=== PATIENT | female | born 1975 | race Caucasian/White ===

== ENCOUNTER → 2020-01-12 09:01 | Outpatient (BNVA) | payer OTHER, SELFPAY | PROVIDERS: Family Provider Internal Medicine; PCP Internal Medicine; Visit Provider Internal Medicine | DX: D56.9 Thalassemia, unspecified (principal); E06.3 Autoimmune thyroiditis; E04.1 Nontoxic single thyroid nodule; E03.8 Other specified hypothyroidism; E55.9 Vitamin D deficiency, unspecified; Z90.49 Acquired absence of other specified parts of digestive tract; Z90.711 Acquired absence of uterus with remaining cervical stump; Z90.89 Acquired absence of other organs | CPT/HCPCS: 99203 ==

== ENCOUNTER 2020-01-12 10:36 | Outpatient (CLI) | payer OTHER, SELFPAY ==
[2020-01-12 11:53] LABS: Free T4 Free Thyroxine 0.51 ng/dL (0.82-1.77); Thyroid Stimulating Hormone 9.35 uIU/mL (0.27-4.20)
[2020-01-12 12:33] LABS: 25 Hydroxy Vitamin D 23 ng/mL (30-100)
[2020-01-13 09:02] LABS: T3 Total 65 ng/dL (76-181)
== END 2020-01-12 10:37 | disposition home or self-care (01) ==
LOC: LAB 10:39
PROVIDERS: PCP Internal Medicine; Visit Provider Internal Medicine
DX: D56.9 Thalassemia, unspecified (principal); E03.8 Other specified hypothyroidism; E06.3 Autoimmune thyroiditis; Z90.49 Acquired absence of other specified parts of digestive tract; Z90.711 Acquired absence of uterus with remaining cervical stump; Z90.89 Acquired absence of other organs
CPT/HCPCS: 82306; 84439; 84443; 84480

== ENCOUNTER 2020-03-12 14:00 | Outpatient (CLI) | payer OTHER, SELFPAY ==
--- NOTE | 2020-03-12 14:08 | US_ITS ---
WS: [id number] ULTRASOUND THYROID TECHNIQUE: Ultrasound of the thyroid. CLINICAL INFORMATION: hx of thyroid nodules COMPARISON: None. FINDINGS: Thyroid: Enlarged heterogeneous thyroid bilaterally. Diffuse heterogeneous thyroid echotexture appear s improved since 2018. Thyroid vascularity appears normal. New hypoechoic right thyroid nodule measur ing 8.9 x 7.0 x 10 mm. No left-sided nodules. Right thyroid lobe: 4.9 cm x 1.7 cm x 2.6 cm Left thyroid lobe: 5.3 cm x 1.8 cm x 1.6 cm. Isthmus: 0.6 mm. Cervical lymphadenopathy: None. US/US thyroid [id number] IMPRESSION: 1. Enlarged thyroid with diffuse heterogeneous background echotexture appears improved since 2018. This can be seen with chronic thyroiditis. Vascularity amadou ears normal. 2. Hypoechoic well-circumscribed thyroid nodule measuring 8.9 x 7.0 x 10 mm. R ecommend 12 month follow-up. 3. No left-sided nodules.
[2020-03-12 15:34] LABS: Free T4 Free Thyroxine 0.71 ng/dL (0.82-1.77); Thyroid Stimulating Hormone 3.71 uIU/mL (0.27-4.20)
[2020-03-13 11:32] LABS: T3 Total 147 ng/dL (76-181)
[2020-03-15 12:27] LABS: Tissue Transglutaminase IgA Ab <1 U/mL; Tissue transglutaminase Ab.IgG 2 U/mL
[2020-03-17 01:48] LABS: Immunoglobulin A 119 mg/dL (47-310)
[2020-03-17 16:43] LABS: Gliadin Ab.IgA 4 U (<20); Gliadin Ab.IgG 2 U (<20)
== END 2020-03-12 14:01 | disposition home or self-care (01) ==
PROVIDERS: PCP Internal Medicine; Visit Provider Internal Medicine
DX: Z87.898 Personal history of other specified conditions (principal); E03.8 Other specified hypothyroidism; E06.3 Autoimmune thyroiditis; K90.9 Intestinal malabsorption, unspecified; E04.1 Nontoxic single thyroid nodule
CPT/HCPCS: 76536; 82784; 83516; 84439; 84443; 84480

== ENCOUNTER → 2020-03-18 14:20 | Outpatient (BNVA) | payer OTHER, SELFPAY | PROVIDERS: PCP Internal Medicine; Visit Provider Internal Medicine | DX: E03.9 Hypothyroidism, unspecified (principal); E04.1 Nontoxic single thyroid nodule; E06.3 Autoimmune thyroiditis; R53.83 Other fatigue | CPT/HCPCS: 99214 ==

== ENCOUNTER 2020-09-23 13:29 | Outpatient (CLI) | payer OTHER, SELFPAY ==
--- NOTE | 2020-09-23 13:35 | MM_ITS ---
WS: [id number] BILATERAL DIGITAL SCREENING MAMMOGRAPHY WITH CAD CLINICAL INFORMATION: SCREENING HISTORY: Screening mammogram. No current complaints. COMPARISON: None. TECHNIQUE: Bilateral CC and MLO views. FINDINGS: Prior breast reduction The breasts are composed of heterogeneous fibroglandular density tissue, which can limit the detectio n of small underlying mass lesions. No suspicious mass, asymmetry, calcifications, or architectural d istortion. No evidence of malignancy. MM/[place] [id number] IMPRESSION: BI-RADS: 1-Negative FOLLOW UP: 1 Year Follow-up Recommend return to annual screening mammography.
== END 2020-09-23 13:30 | disposition home or self-care (01) ==
LOC: RADSHAW 13:33
PROVIDERS: PCP Internal Medicine; Visit Provider Internal Medicine
DX: Z12.31 Encounter for screening mammogram for malignant neoplasm of breast (principal)
CPT/HCPCS: 77067

== ENCOUNTER 2021-03-11 13:34 | Outpatient (CLI) | payer OTHER, SELFPAY ==
[2021-03-11 15:04] LABS: Cortisol Random 8.37 ug/dL (2.47-19.5); Free T4 Free Thyroxine 0.56 ng/dL (0.82-1.77); Thyroid Stimulating Hormone 13.42 uIU/mL (0.27-4.20)
[2021-03-12 07:53] LABS: T3 Total 95 ng/dL (76-181)
[2021-03-13 16:32] LABS: Immunoglobulin A 136 mg/dL (47-310)
== END 2021-03-11 13:35 | disposition home or self-care (01) ==
LOC: LAB 13:40
PROVIDERS: PCP Internal Medicine; Visit Provider Internal Medicine
DX: E03.8 Other specified hypothyroidism (principal); E06.3 Autoimmune thyroiditis
CPT/HCPCS: 36415; 82533; 82784; 83516; 84439; 84443; 84480

== ENCOUNTER → 2021-03-17 10:47 | Outpatient (BNVA) | payer OTHER, SELFPAY | PROVIDERS: PCP Internal Medicine; Visit Provider Internal Medicine | DX: E04.1 Nontoxic single thyroid nodule (principal); E03.8 Other specified hypothyroidism; E06.3 Autoimmune thyroiditis; R14.0 Abdominal distension (gaseous) | CPT/HCPCS: 99214 ==

== ENCOUNTER 2021-09-02 20:00 | Outpatient (CLI) | payer OTHER, SELFPAY | END 2021-09-02 20:01 | disposition home or self-care (01) | LOC: SLEEP 09-03 08:54 | PROVIDERS: PCP Internal Medicine; Visit Provider Specialist | DX: G47.33 Obstructive sleep apnea (adult) (pediatric) (principal) | CPT/HCPCS: 95810 ==

== ENCOUNTER 2021-09-03 15:53 | Outpatient (CLI) | payer OTHER, SELFPAY ==
[2021-09-03 16:59] LABS: Basophils # 0.1 10^3/uL (0.0-0.1); Basophils % 0.6 %; Eosinophils # 0.3 10^3/uL (0.0-0.8); Eosinophils % 2.3 %; Hematocrit 36.7 % (37.0-47.0); Hemoglobin 11.6 g/dL (11.5-15.3); Lymphocytes # 4.1 10^3/uL (0.8-4.8); Lymphocytes % 37.8 %; Mean Corpuscular HGB Conc 31.6 g/dL (30.0-36.0); Mean Corpuscular Hemoglobin 23.6 pg (28.0-34.0); Mean Corpuscular Volume 74.7 fl (81-99); Mean Platelet Volume 12.7 fL (7.4-10.4); Monocytes # 0.7 10^3/uL (0.2-0.9); Monocytes % 6.6 %; Neutrophils # 5.65 10^3/uL (1.8-7.7); Neutrophils % 52.2 %; Nucleated Red Blood Cells % 0 %; Platelet Count 212 10^3/cmm (130-400); Red Blood Count 4.91 10^6/uL (4.1-5.3); Red Cell Distribution Width 14.5 % (12.1-15.1); White Blood Count 10.8 10^3/uL (4.0-10.0)
[2021-09-03 17:16] LABS: Iron 99 ug/dL (37-145); Percent Saturation 33.7 % (20-50); Total Iron Binding Capacity 293 mcg/dl; Unsaturated Iron Binding 194 ug/dL (112-347)
[2021-09-03 17:20] LABS: Slide Review Slide Review Perform
[2021-09-03 17:25] LABS: Thyroid Stimulating Hormone 48.04 uIU/mL (0.27-4.20)
[2021-09-05 08:27] LABS: T3 Total 77 ng/dL (76-181)
== END 2021-09-03 15:54 | disposition home or self-care (01) ==
LOC: LAB 15:56
PROVIDERS: Internal Medicine; PCP Internal Medicine; Visit Provider Internal Medicine
DX: E03.8 Other specified hypothyroidism (principal); E04.1 Nontoxic single thyroid nodule; E06.3 Autoimmune thyroiditis; D56.9 Thalassemia, unspecified
CPT/HCPCS: 36415; 83540; 83550; 84439; 84443; 84480; 85025

== ENCOUNTER 2023-07-19 11:06 | Outpatient (CLI) | payer OTHER, SELFPAY ==
--- NOTE | 2023-07-19 11:21 | US_ITS ---
WS: [id number] THYROID ULTRASOUND HISTORY: MULTINODULAR GOITER COMPARISON: 03/12/2020 Right lobe: 2.0 cm x 2.1 cm x 5.3 cm (w x ap x l). Volume: 10.4 cm3. Mildly enlarged gland. Very heterogeneous appearance of the gland. Multiple ill-defined nodules and h eterogeneity throughout the gland. There is no well-formed discrete nodule. Vascularity is no longer increased. Left lobe: 1.5 cm x 1.3 cm x 4.4 cm (w x ap x l). Volume: 4.1 cm3. Gland is more normal size but there is very coarse echotexture with prominent fibrous septa. Slight i ncreased vascularity. 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 Isthmus: 0.5 cm. IMPRESSION: 1. Very heterogeneous pseudonodule appearance of the gland which is seen with chronic El's th yroiditis. 2. Mildly enlarged RIGHT thyroid lobe with more nodularity than the LEFT. Consider yearly ultrasound evaluation.
== END 2023-07-19 11:07 | disposition home or self-care (01) ==
LOC: RAD 11:06
PROVIDERS: PCP Internal Medicine; Visit Provider Internal Medicine
DX: E04.2 Nontoxic multinodular goiter (principal)
CPT/HCPCS: 76536

== ENCOUNTER 2024-05-24 09:49 | Outpatient (CLI) | payer OTHER, SELFPAY ==
--- NOTE | 2024-05-24 09:53 | MM_ITS ---
WS: [id number] SCREENING DIGITAL BREAST TOMOSYNTHESIS MAMMOGRAM WITH CAD HISTORY: SCREENING COMPARISON: 09/23/2020 Bilateral CC and MLO with tomosynthesis and synthetic mammography submitted. Computer aided detection analyzed. Breast composition: The breasts are heterogeneously dense, which may obscure small masses. New scatte red asymmetries are noted within each breast. Recommend additional imaging of the asymmetry in the ce ntral RIGHT breast. Additional asymmetry towards the RIGHT axillary tail seen best on the MLO project ion has progressed since the prior study. Is a lobulated mass measuring 8 x 4 x 8 mm inferior medial LEFT breast. MM/MM scr tomosynthesis [id number] IMPRESSION: BI-RADS: 0 - Incomplete: Need additional imaging evaluation FOLLOW UP: Need Additional Imaging RIGHT breast: Spot compression views central and superior RIGHT breast, MLO pro jection. Exaggerated lateral RIGHT cc, ML. LEFT breast: Spot compression medial inferior LEFT breast. Bilateral limited breast ultrasound will also be necessary.
== END 2024-05-24 09:50 | disposition home or self-care (01) ==
LOC: RAD 09:51
PROVIDERS: PCP Internal Medicine; Visit Provider Internal Medicine
DX: Z12.31 Encounter for screening mammogram for malignant neoplasm of breast (principal); R92.333 Mammographic heterogeneous density, bilateral breasts; N64.89 Other specified disorders of breast; R92.8 Other abnormal and inconclusive findings on diagnostic imaging of breast
CPT/HCPCS: 77063; 77067

== ENCOUNTER 2024-06-13 10:29 | Outpatient (CLI) | payer OTHER, SELFPAY ==
--- NOTE | 2024-06-13 10:38 | MM_ITS ---
WS: [id number] ADDITIONAL VIEWS BILATERAL MAMMOGRAM WITH DIGITAL BREAST TOMOSYNTHESIS. Bilateral breast ultrasound, limited HISTORY: ABNORMAL MAMMO COMPARISON: 05/24/2024, 09/23/2020 Spot compression views RIGHT and LEFT breast in CC, MLO projections and true ML submitted with digital breast tomosynthesis and SM. Breast composition: The breasts are heterogeneously dense, which may obscure small masses. RIGHT: Asymmetry persists in the RIGHT axillary tail measuring about 15 mm. Slightly more prominent than on the prior studies. LEFT: Reidentified is the ovoid mass near 8:00 which is partially obscured by the adjacent breast parenchyma. Mass measures approximately 8 mm at its maximum. Bilateral breast ultrasound, limited. RIGHT: No suspicious masses or shadowing in the RIGHT axillary tail. There is dense fibroglandular tissue and several benign lymph nodes. LEFT: Small cluster of cysts at 8:00, 2 cm from nipple measures 8 x 5 x 2 mm. This does correspond in size and shape to the mammographic abnormality. MM/MM diag BI tomosynthesis [id number] IMPRESSION: BI-RADS: 2 - Benign FOLLOW UP: 1 Year Follow-up Return to annual screening mammography.
== END 2024-06-13 10:30 | disposition home or self-care (01) ==
PROVIDERS: PCP Internal Medicine; Visit Provider Internal Medicine
DX: R92.8 Other abnormal and inconclusive findings on diagnostic imaging of breast (principal); R92.333 Mammographic heterogeneous density, bilateral breasts; N64.89 Other specified disorders of breast; N63.24 Unspecified lump in the left breast, lower inner quadrant; R59.0 Localized enlarged lymph nodes
CPT/HCPCS: 76642; 77062; G0279